=== PATIENT | female | born 2000 | race Caucasian/White ===

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

== ENCOUNTER → 2021-05-13 | Outpatient (CLI) | payer OTHER ==
[~2021-05-13] MED LIST: CETI-24 PO; D31000TA2 PO; PROZ10CA7 PO
== END ==
LOC: M LABSMTC 09:44
PROVIDERS: ATTEND Anesthesiology
DX: Z01.818 Encounter for other preprocedural examination (principal); Z11.52 Encounter for screening for COVID-19

== ENCOUNTER 2021-05-17 07:03 | Day surgery (SDC) | payer OTHER ==
[~2021-05-17] VITALS: Ht 154.9 cm; Wt 76.4 kg
[~2021-05-17 07:03] MED LIST changes: +LIDOCAINE 1% MDV 20ML VIAL SQ PRN
[2021-05-17] MEDS ORDERED: LR 1,000 ML IV ONE (07:55)
[2021-05-17] MEDS ORDERED: SCOPOLAMINE 1MG TRANSDERMAL PATCH TOP ONE (08:10)
[2021-05-17] MEDS ORDERED: BUPIVACAINE/EPIN 0.5% 30 ML VIAL As Ordered ONE (08:26)
[2021-05-17] MEDS ORDERED: MIDAZOLAM INJ 2MG/2ML VIAL (J2250 PER 1MG) As Ordered ONE (08:52)
[2021-05-17] MEDS ORDERED: ROCURONIUM BROMIDE 50 MG/5 ML VIAL As Ordered ONE (08:52)
[2021-05-17] MEDS ORDERED: ONDANSETRON 4MG/2ML VIAL As Ordered ONE (08:52)
[2021-05-17] MEDS ORDERED: LIDOCAINE 2% 100MG/5ML SDV (FOR ANES.) As Ordered ONE (08:52)
[2021-05-17] MEDS ORDERED: ACETAMINOPHEN 1000MG 100ML IV BTL (OFIRMEV) (J0131 PER 10MG) As Ordered ONE (08:52)
[2021-05-17] MEDS ORDERED: dexameTHASONE 4 MG/ML 1ML VIAL (J1100 PER 1MG) As Ordered ONE (08:52)
[2021-05-17] MEDS ORDERED: METOCLOPRAMIDE INJ 10MG/2ML VIAL (J2765 PER 1) As Ordered ONE (08:52)
[2021-05-17] MEDS ORDERED: propofoL 200 MG/20 ML VIAL As Ordered ONE (08:52)
[2021-05-17] MEDS ORDERED: fentaNYL 100 MCG/2 ML INJECTION (J3010) As Ordered ONE (09:03)
[2021-05-17] MEDS ORDERED: SUGAMMADEX SODIUM 500 MG/5 ML VIAL (BRIDION) As Ordered ONE (09:05)
[2021-05-17] MEDS ORDERED: DESFLURANE 240 ML INHALANT As Ordered ONE (09:17)
[2021-05-17] MEDS ORDERED: fentaNYL 100 MCG/2 ML INJECTION (J3010) IV PRN (09:45)
[2021-05-17] MEDS ORDERED: oxyCODONE 5MG TAB PO PRN (09:45)
[2021-05-17] MEDS ORDERED: METOCLOPRAMIDE INJ 10MG/2ML VIAL (J2765 PER 1) IV PRN (09:45)
[2021-05-17] MEDS ORDERED: ONDANSETRON 4MG/2ML VIAL IV PRN ×2 (09:45→09:55)
[2021-05-17] MEDS ORDERED: LR 1,000 ML IV SCH ×2 (09:45→09:55)
[2021-05-17] MEDS ORDERED: HYDROcodone/APAP LIQUID 7.5-325MG 15ML UDC (LORTAB ELIXIR) PO PRN (09:55)
--- NOTE | 2021-05-17 09:57 | ROOPDOC ---
[facility] Report Of Operation Report of Operation DATE OF PROCEDURE: 05/17/21 PREPROCEDURE DIAGNOSES: Chronic tonsillitis. POSTPROCEDURE DIAGNOSES: Same. PROCEDURE PERFORMED: Tonsillectomy. SURGEON: MD Joon GRINDER SET UP OPERATOR GEAR TOOL: Evie, ANESTHESIA: General. ESTIMATED BLOOD LOSS: Approximately less than 5 mL COMPLICATIONS: None. REMARKS: . FINDINGS: SPECIMENS REMOVED: Right and left tonsil PROCEDURE NOTE: . Patient was seen in the office and diagnosed with chronic tonsillitis. The decision was made in consultation with the patient and/or their parents to undergo the above-named procedure. The risks and benefits of surgery were explained, including alternatives to the surgery, informed consent was obtained. The patient was admitted through the same-day surgery program and taken to the operating room where general anesthetic was administered via intravenous injection. The patient was then intubated endotracheally. Tonsil gag was placed in the mouth and expanded. This was secured to a Kiran stand. Red rubber catheter was placed through the nose and in the oropharynx for smoke evacuation. Right tonsil was grasped and an Allis forceps was retracted medially. Using electrocautery, the capsule was identified laterally. Tonsil was then removed from its fossa in an inferior to superior fashion. Once this was completed, several areas were cauterized using suction cautery. The left tonsil was then grasped with an Allis forceps and retracted medially. Using electrocautery, the capsule was identified laterally. Tonsil was removed from its fossa and inferior to superior fashion. Once this was completed, the bed was inspected, and any bleeding areas were cauterized using suction cautery. Once this was completed, 2 tonsil sponges were soaked in 0.5% Marcaine with epinephrine, one was placed in each tonsil bed. These were left in position for several minutes and then removed. The beds were inspected and hemostasis was ensured. We then released the tonsil gag and removed it from the mouth. The TMJ joint was checked. The patient was then allowed to recover from anesthesia and taken to the postanesthesia care area in stable condition. There were no complications during the procedure. DESCRIPTION OF PROCEDURE: Maurice Dupree MD May 17, 2021 09:57
[2021-05-17 11:55] VITALS: BP 132/71
== END 2021-05-17 12:05 | disposition home or self-care (01) ==
LOC: M SDC 07:03
PROVIDERS: ATTEND Otolaryngology
DX: J35.01 Chronic tonsillitis (principal); Z79.899 Other long term (current) drug therapy
CPT/HCPCS: 42826; 81025; 88302; J0131; J1100; J2250; J2405; J2765; J3010

== ENCOUNTER → 2022-10-25 | Outpatient (REF) | payer OTHER ==
[~2022-10-25] MED LIST changes: -D31000TA2 PO; -LIDOCAINE 1% MDV 20ML VIAL SQ PRN; +VITA100093 PO
[2022-10-25 18:12] LABS: BASO % 0.6 % (0.0-1.0); EOS # 0.2 10^3/uL (0.0-0.5); EOS % 2.7 % (0.0-3.0); HEMATOCRIT 39.2 % (36.0-47.0); HEMOGLOBIN 13.4 g/dl (12.0-15.5); LYMPH # 2.2 10^3/uL (1.5-5.0); LYMPH % 32.9 % (24.0-44.0); MEAN CORPUSCULAR HEMOGLOBIN 30.9 pg (27.0-33.0); MEAN CORPUSCULAR HGB CONC 34.2 g/dl (32.0-36.5); MEAN CORPUSCULAR VOLUME 90.3 fl (80.0-96.0); MONO # 0.4 10^3/uL (0.0-0.8); MONO % 6.3 % (2.0-8.0); NEUTROPHILS # 3.9 10^3/uL (1.5-8.5); NEUTROPHILS % 57.2 % (36.0-66.0); PLATELET COUNT, AUTOMATED 272 10^3/uL (150-450); RED BLOOD COUNT 4.34 10^6/uL (4.00-5.40); WHITE BLOOD COUNT 6.8 10^3/uL (4.0-10.0)
[2022-10-25 18:30] LABS: ALBUMIN 4.2 G/DL (3.2-5.2); ALKALINE PHOSPHATASE 63 U/L (46-116); ALT/SGPT 32 U/L (7.0-40); AST/SGOT 20 U/L (<34); BILIRUBIN,TOTAL 0.4 MG/DL (0.3-1.2); BLOOD UREA NITROGEN 13 MG/DL (9-23); CALCIUM LEVEL 9.3 MG/DL (8.5-10.1); CARBON DIOXIDE LEVEL 27 MMOL/L (20-31); CHLORIDE LEVEL 106 MMOL/L (98-107); CREATININE FOR GFR 0.76 MG/DL (0.55-1.30); GLUCOSE, FASTING 97 MG/DL (60-100); IRON (FE) 103 UG/DL (50-170); PERCENT SATURATION 35.6 % (13.2-45.0); POTASSIUM SERUM 4.2 MMOL/L (3.5-5.1); SODIUM LEVEL 141 MMOL/L (136-145); TOTAL IRON BINDING CAPACITY 289 UG/DL (250-425); TOTAL PROTEIN 6.8 G/DL (5.7-8.2)
[2022-10-25 18:32] LABS: THYROID STIMULATING HORMONE 1.374 uIU/ML (0.48-4.17)
[2022-10-25 18:33] LABS: TOTAL 25(OH) VITAMIN D 58.4 NG/ML (20.0-100.0)
[2022-10-25 18:34] LABS: FREE T4 1.14 NG/DL (0.83-1.43)
== END ==
LOC: M SFHCCLAY 13:14
PROVIDERS: ATTEND Nurse Practitioner Family
DX: R51.9 Headache, unspecified (principal); F41.8 Other specified anxiety disorders

== ENCOUNTER → 2024-01-25 | Outpatient (REF) | payer OTHER ==
[2024-01-25 18:22] LABS: Trichomonas vaginalis (AMP) NOT DETECTED (NEGATIVE)
[2024-01-25 18:45] LABS: GC DNA AMPLIFICATION NEGATIVE (NEGATIVE)
== END ==
LOC: M SFHCCLAY 10:43
PROVIDERS: ATTEND Nurse Practitioner Family
DX: Z12.4 Encounter for screening for malignant neoplasm of cervix (principal)
CPT/HCPCS: 87661; 87810; 87850; G0123

== ENCOUNTER 2024-10-18 22:38 | Emergency (ER) | payer OTHER ==
[~2024-10-18] VITALS: Ht 154.9 cm; Wt 68.2 kg
[2024-10-19 00:47] LABS: BASO % 0.5 % (0.0-1.0); EOS # 0.2 10^3/uL (0.0-0.5); EOS % 1.8 % (0.0-3.0); HEMATOCRIT 35.2 % (36.0-47.0); HEMOGLOBIN 12.3 g/dl (12.0-15.5); LYMPH # 3.4 10^3/uL (1.5-5.0); MEAN CORPUSCULAR HEMOGLOBIN 30.7 pg (27.0-33.0); MEAN CORPUSCULAR HGB CONC 34.9 g/dl (32.0-36.5); MEAN CORPUSCULAR VOLUME 87.8 fl (80.0-96.0); MONO # 0.5 10^3/uL (0.0-0.8); MONO % 5.6 % (2.0-8.0); NEUTROPHILS # 4.2 10^3/uL (1.5-8.5); PLATELET COUNT, AUTOMATED 209 10^3/uL (150-450); RED BLOOD COUNT 4.01 10^6/uL (4.00-5.40); WHITE BLOOD COUNT 8.2 10^3/uL (4.0-10.0)
[2024-10-19] MEDS ORDERED: ISOVUE-370 76% 100ML VIAL As Ordered ONE (00:47)
[2024-10-19 01:13] LABS: LIPASE 18 U/L (12-53)
[2024-10-19 01:15] LABS: ALBUMIN 3.9 G/DL (3.2-5.2); ALKALINE PHOSPHATASE 61 U/L (35-104); ALT/SGPT 16 U/L (7.0-40); AST/SGOT 9 U/L (<34); BILIRUBIN,DIRECT 0.1 MG/DL (<0.4); BILIRUBIN,TOTAL 0.3 MG/DL (0.3-1.2); TOTAL PROTEIN 6.5 G/DL (5.7-8.2)
[2024-10-19 01:43] LABS: HCG, SERUM QUALITATIVE NEGATIVE (NEGATIVE)
[2024-10-19] MEDS ORDERED: CEPH500C PO (02:51)
[2024-10-19] MEDS: CEPHALEXIN 500 MG CAP PO ONE (03:16)
[2024-10-19 03:19] VITALS: BP 116/70; TEMP 98; O2SAT 100
== END 2024-10-19 03:22 | disposition home or self-care (01) ==
LOC: M ED 22:38
DX: L02.211 Cutaneous abscess of abdominal wall (principal); F41.9 Anxiety disorder, unspecified; F32.A Depression, unspecified; F10.10 Alcohol abuse, uncomplicated; Z79.2 Long term (current) use of antibiotics; Z79.899 Other long term (current) drug therapy
CPT/HCPCS: 36415; 74177; 80047; 80076; 83605; 83690; 84703; 85025; 99284; Q9967